=== PATIENT | male | born 1960 | race Caucasian/White ===

== ENCOUNTER 2022-05-24 21:04 | Emergency (ER) | payer BC ==
[2022-05-24] MEDS ORDERED: Ondansetron 4 MG/2 ML SDV IVPUSH ONE (21:30)
[2022-05-24] MEDS ORDERED: Sodium Chloride 0.9% 1,000 ML IV SCH (21:30)
[2022-05-24] MEDS ORDERED: Sodium Chloride 0.9% 10 ML Syringe FLUSH PRN (21:30)
[2022-05-24 22:50] LABS: ESTIMATED GFR 69 mL/min (>60)
[2022-05-25] MEDS ORDERED: Prochlorperazine 10 MG Tab PO ONE (01:46)
== END 2022-05-25 02:39 | disposition other institution (70) ==
LOC: EDBD 21:04 → JP.ED 21:04
DX: R55 Syncope and collapse (principal); F10.920 Alcohol use, unspecified with intoxication, uncomplicated; F12.90 Cannabis use, unspecified, uncomplicated; Z79.899 Other long term (current) drug therapy
CPT/HCPCS: 36415; 80053; 80307; 85025; 96361; 96374; 99284; J2405; J7030; Q0164; 99282